=== PATIENT | female | born 1980 | race Caucasian/White ===

== ENCOUNTER 2021-07-08 19:45 | Emergency (ER) | payer OTHER ==
[2021-07-09] MEDS ORDERED: MOBIC7.5 MG PO (10:55)
== END 2021-07-09 01:47 | disposition left against medical advice (07) ==
LOC: FER 19:45
DX: Z53.8 Procedure and treatment not carried out for other reasons (principal)
CPT/HCPCS: 93005

== ENCOUNTER 2021-07-09 04:49 | Emergency (ER) | payer OTHER ==
[2021-07-09 05:48] LABS: BASOPHIL 0.7 % (0-2); EOSINOPHIL 1.1 % (0-5); HCT 46.8 % (37.0-47.0); HGB 15.7 g/dl (12.5-16.0); LYMPHOCYTE 20.9 % (15-48); MCH 31.8 pg (25.0-31.0); MCHC 33.5 g/dL (32.0-36.0); MCV 94.7 fL (78.0-100.0); MONOCYTE 8.1 % (0-12); MPV 10.5 fL (6.0-9.5); NEUTROPHIL 68.8 % (41-80); NRBC 0; PLT 280 K/uL (150-400); RBC 4.94 M/uL (4.20-5.40); RDW 12.2 % (11.5-14.0); WBC 9.7 K/uL (4.0-10.5)
[2021-07-09 05:52] LABS: INR 1.03 (0.9-1.2); PROTHROMBIN TIME 12.9 SECONDS (11.8-13.4); PTT 24.1 SECONDS (24.4-34.7)
[2021-07-09 05:54] LABS: D-DIMER 0.41 ug/mLFEU (0.00-0.41)
[2021-07-09 06:02] LABS: ALBUMIN 3.6 g/dL (3.4-5.0); BILIRUBIN - TOTAL 0.3 mg/dL (0.2-1.0); CREATININE 0.65 mg/dL (0.51-0.95); GLOBULIN (CALCULATION) 3.9 g/dL; POTASSIUM 3.7 mmol/L (3.5-5.1); TOTAL PROTEIN 7.5 g/dL (6.4-8.2)
[2021-07-09 06:06] LABS: PRO-BNP 25 pg/mL (<125)
[2021-07-09 06:58] LABS: LDH 158 U/L (81-234)
[2021-07-09 06:59] LABS: C-REACTIVE PROTEIN < 0.30 mg/dL (<=0.90)
[2021-07-09 09:16] LABS: C-REACTIVE PROTEIN <0.20 mg/dL (<=0.90); CPK 71 U/L (26-192)
[2021-07-09] MEDS ORDERED: MOBIC7.5 MG PO (10:55)
== END 2021-07-09 11:15 | disposition home or self-care (01) ==
LOC: FER 04:49
PROVIDERS: Emergency Medicine; Internal Medicine
DX: R07.89 Other chest pain (principal); F17.290 Nicotine dependence, other tobacco product, uncomplicated; R00.0 Tachycardia, unspecified; I10 Essential (primary) hypertension; Z20.822 Contact with and (suspected) exposure to COVID-19
CPT/HCPCS: 36415; 71045; 71250; 80053; 82550; 82728; 83615; 83880; 84484; 85025; 85379; 85610; 85730; 86140; 93970; J1170; J1885; J2405; U0002

== ENCOUNTER 2021-08-23 04:56 | Emergency (ER) | payer OTHER ==
[~2021-08-23 04:56] MED LIST: MOBIC7.5 MG PO
[2021-08-23 05:37] LABS: BASOPHIL 0.7 % (0-2); EOSINOPHIL 0.2 % (0-5); HCT 50.7 % (37.0-47.0); HGB 17.3 g/dl (12.5-16.0); LYMPHOCYTE 30.9 % (15-48); MCH 31.6 pg (25.0-31.0); MCHC 34.1 g/dL (32.0-36.0); MCV 92.5 fL (78.0-100.0); MONOCYTE 8.8 % (0-12); MPV 10.9 fL (6.0-9.5); NEUTROPHIL 58.2 % (41-80); NRBC 0; PLT 177 K/uL (150-400); RBC 5.48 M/uL (4.20-5.40); RDW 11.3 % (11.5-14.0); WBC 4.3 K/uL (4.0-10.5)
[2021-08-23 06:16] LABS: ALBUMIN 3.5 g/dL (3.4-5.0); BILIRUBIN - TOTAL 0.3 mg/dL (0.2-1.0); BUN/CREAT RATIO (CALC) 20.3 RATIO; CREATININE 0.59 mg/dL (0.51-0.95); GLOBULIN (CALCULATION) 4.5 g/dL; POTASSIUM 4.2 mmol/L (3.5-5.1)
[2021-08-23] MEDS ORDERED: TESSALON PERLE100 M1 PO (08:32)
== END 2021-08-23 09:31 | disposition home or self-care (01) ==
LOC: FER 04:56
PROVIDERS: Emergency Medicine
DX: U07.1 COVID-19 (principal); R07.81 Pleurodynia; E11.9 Type 2 diabetes mellitus without complications; F17.200 Nicotine dependence, unspecified, uncomplicated; Z88.0 Allergy status to penicillin; Z79.84 Long term (current) use of oral hypoglycemic drugs
CPT/HCPCS: 36415; 71045; 71275; 80053; 82728; 83615; 84484; 85025; 85379; 93005; J2405; J7030; Q9967